=== PATIENT | female | born 1945 | race Caucasian/White ===

== ENCOUNTER 2025-08-26 10:29 | Day surgery (SDC) | payer MEDICARE, BC, SELFPAY ==
[2025-08-26] VITALS (21 sets, daily range): BP systolic 110–136; BP diastolic 64–88; PULSE 54–74; RESP 12–18; TEMP 35.6–36.7; O2SAT 60–100; BMI 24.2
[2025-08-26] MEDS: LACTATED RINGERS 1000 ML 1,000 ML 100 ML IV (10:35)
[2025-08-26] MEDS: ACETAMINOPHEN 500 MG TABLET 1000 MG PO ×3 (10:50→23:44)
[2025-08-26] MEDS: OXYCODONE (CR) 10 MG TAB.ER.12H PO (10:50)
[2025-08-26] MEDS: CELECOXIB 200 MG CAPSULE PO ×2 (10:50→21:09)
[2025-08-26] MEDS: SODIUM CHLORIDE 0.9 % (FLUSH) 10 ML SYRINGE IVF (11:17)
[2025-08-26] MEDS: MIDAZOLAM HCL 1 MG/ML inj IVP (12:15)
--- NOTE | 2025-08-26 12:28 | SUR.PREOP ---
TIME?OUT:?1215 PT/moises banks RN/santana rosen CRNA/katalina lopez MDA?VERIFICATION?OF?SURGICAL?SITE,?PROCEDURE,?AND?CONSENT OBTAINED?PRIOR?TO?INVASIVE?PROCEDURE.
--- NOTE | 2025-08-26 12:43 | P.NB_ITS ---
Nerve Block Nerve Block Time Seen by Provider: 12:15 Date Seen: 08/26/25 Type of block requested by surgeon for post-operative analgesia: geniculars Side: left Time out performed: Yes Verification of patient name: Yes Verification of date of : Yes Site marking: site marked Name of person performing procedure: Luiz Continuous monitoring Was continuous monitoring of O2 sat, B/P, radiation monitor, recorded every 15 minutes?: Yes Procedure Checklist: sterile prep, needles and gloves Ultrasound guided. Images saved: Yes Medications given in 5ml increments after negative aspiration: Marcaine %: 0.25 mL: 9 Needle gauge: 25 Patient tolerated procedure well: Yes Block Charges Block Charge (with Pro Fee): Genicular Nerve Block
--- NOTE | 2025-08-26 12:43 | P.NB_ITS ---
Nerve Block Nerve Block Time Seen by Provider: 12:15 Date Seen: 08/26/25 Type of block requested by surgeon for post-operative analgesia: adductor canal Side: left Time out performed: Yes Verification of patient name: Yes Verification of date of : Yes Site marking: site marked Name of person performing procedure: Luiz Continuous monitoring Was continuous monitoring of O2 sat, B/P, cardiac cath lab radiology technologist, recorded every 15 minutes?: Yes Procedure Checklist: sterile prep, needles and gloves Ultrasound guided. Images saved: Yes Medications given in 5ml increments after negative aspiration: Marcaine %: 0.25 mL: 15 Needle gauge: 20 Precedex (mcg): 25 Patient tolerated procedure well: Yes Block Charges Block Charge (with Pro Fee): Femoral Nerve Use of Ultrasound Machine for Block: Yes- US Guidance/pain block
[2025-08-26] MEDS: TRANEXAMIC ACID 100 MG/ML INJ 1000 MG IV (13:00)
--- NOTE | 2025-08-26 14:15 | CRLHL7_ITS ---
For Patients: As a result of the Cures Act, medical imaging exams and procedure reports are released immediately into your electronic medical record. You may view this report before your referring provider. If you have questions, please contact your health care provider. Indication: Postop TKA Technique: Two views left knee Findings/Impression: Hardware from a left total knee arthroplasty is in satisfactory position. Bone alignment is normal. No sign of acute fracture. Postop changes are within normal limits. Dictated by Isidro Cutler MD @ 08/27/2025 12:07:16 PM (Electronically Signed)
--- NOTE | 2025-08-26 14:18 | P.ORPRC_ITS ---
Procedure Note Date of procedure: 08/26/25 Procedure: PREOPERATIVE DIAGNOSIS: Left knee osteoarthritis POSTOPERATIVE DIAGNOSIS: Left knee osteoarthritis NAME OF OPERATION: Left total knee arthroplasty SURGEON: Ramón Stearns MD FURNA[employer] PLANT OPERATOR: Anny Colindres PA-C ANESTHESIA: Spinal ESTIMATED BLOOD LOSS: 0 mL COMPLICATIONS: None SPECIMENS: None DRAINS: None PREOPERATIVE ANTIBIOTICS: Ancef 1 g, antibiotic impregnated cement IMPLANTS: 1. J&J Attune #6 posterior stabilized femur 2. # 5 fixed-bearing tibia 3. #6 posterior stabilized, 8 mm fixed-bearing polyethylene 4. 38 patella INDICATIONS: The patient is a 79-year-old with a longstanding history of severe, unrelenting left knee pain secondary to end-stage (grade IV) left knee osteoarthritis. Despite appropriate nonoperative management, including activity modification, anti-inflammatories, [id number]-[id number] pain medication, bracing, physical therapy, and injections they continue to have pain and disability. Operative intervention was offered. The risks, benefits and expected outcomes were discussed in detail. These included but were not limited to: Infection, bleeding, injury to blood vessel or nerve, venous thromboembolism. All questions were answered to their satisfaction. Use of an registered sales assistant was necessary throughout the case for patient positioning and safety, soft tissue retraction, and closure. PROCEDURE: Spinal anesthesia was administered. The patient was placed supine on the operating table. The registered sales assistant made sure the patient was positioned appropriately. The lower extremity was prepped and draped in the usual sterile fashion. The limb was exsanguinated with the Kelvin bandage. The pneumatic tourniquet was inflated to 225mmHg. A standard anterior incision was made with the knee in flexion. Subcutaneous dissection was sharply taken through fascial layer #1. Full-thickness medial and lateral flaps were elevated. The registered sales assistant retracted the soft tissues and protected them throughout the case. A standard subvastus approach was made. The patella was subluxed. The infrapatellar fat pad was preserved. The menisci and cruciate ligaments were sharply d?brided. Marginal osteophytes were d?brided with the rongeur. The drill was used to penetrate the femoral canal. The intramedullary femoral guide was placed for a 5-degree valgus cut, removing 10 mm off the distal femur. The saw was used to make the cut. Whitesides line and the trans epicondylar axis were marked. The femoral sizing guide was pinned onto the distal femur. Three degrees of external rotation nicely parallels the transepicondylar axis. Pins were placed for posterior referencing. The four-in-one cutting guide was pinned onto the distal femur. The anterior, posterior, and chamfer cuts were made. The registered sales assistant protected the collateral ligaments. The box cutting guide was pinned. The box cuts were made. The boxed trial was placed and was an excellent fit. Drill holes for the lugs were made. Attention was then turned to the proximal tibia. The extramedullary Tibial guide was placed for a neutral varus/valgus cut with 5 Degrees of posterior slope, removing 2 mm based off the medial tibial surface. The registered sales assistant protected the collateral ligaments and the neurovascular bundle. The saw was used to make the cut. Trial components were placed. The knee was nicely balanced in both flexion and extension. The trial components were removed. The tray was placed in appropriate rotation, parallel to our tibial cutting pins. It was pinned by the registered sales assistant and the drill and the punch were used. The tray was removed. The punch was used again. We placed a bone plug in the femoral canal. Attention was then turned to the patella. Sioux patellar thickness was 23.5 mm. The lobster claw resection guide was used with the 9.5 mm arash. The saw was used to make the cut. Drill holes were made by the registered sales assistant. The trial was placed and was an excellent fit. Cancellous surfaces were irrigated with pulse lavage and thoroughly dried by the registered sales assistant. We cemented the tibial component, then the femoral component. We impacted the 5 mm polyethylene onto the tibial tray. The knee was brought into full extension. We then cemented the patellar component. Excessive cement was removed. The cement was allowed to harden. The knee was taken through a range of motion and was found to be nicely balanced in both flexion and extension. The patella tracks centrally. The registered sales assistant did a three minute dilute Betadine solution soak. The registered sales assistant irrigated the wound with 3 liters of normal saline via pulse lavage. The registered sales assistant reapproximated the extensor mechanism with #1 Vicryl in an interrupted [id number] fashion. The registered sales assistant then ran the extensor mechanism with a #1 PDO Stratafix. The registered sales assistant closed the subcutaneous tissues with a 3-0 Stratafix and the skin with a running 3-0 Stratafix in a subcuticular fashion. The registered sales assistant placed a dry dressing. Sponge and needle counts were correct x2. The patient tolerated the procedure well. There were no apparent complications. They were carefully transferred to the hospital bed and taken to the postanesthesia care unit in satisfactory condition. PLAN: The patient will be mobilized with physical therapy. Aspirin will be used for DVT prophylaxis. They will be discharged to home once medically appropriate.
--- NOTE | 2025-08-26 15:13 | P.ANES_ITS ---
Anesthesia Charges Start Date/Time Anesthesia Start Date: 08/26/25 Anesthesia Start Time: 12:44 Stop Date/Time Anesthesia Stop Date: 08/26/25 Anesthesia Stop Time: 15:10 Summary Extremes of Age - Over 70 or under 1: QUALITY ASSURANCE SUPERVISOR FINAL Coding CPT Codes CPT Codes: ANESTH KNEE ARTHROPLASTY - 19548 ([id number]) P2 - PATIENT W/MILD SYST DISEASE, QZ - QUALITY ASSURANCE SUPERVISOR FINAL SVC W/O HUMAN RESOURCES DESIGNATE BY Additional Codes: Summary - Extremes of Age - Over 70 or under 1: QUALITY ASSURANCE SUPERVISOR FINAL ([id number])
--- NOTE | 2025-08-26 15:13 | W.ANESCHARGE ---
Anesthesia Charges Start Date/Time Anesthesia Start Date: 08/26/25 Anesthesia Start Time: 12:44 Stop Date/Time Anesthesia Stop Date: 08/26/25 Anesthesia Stop Time: 15:10 Summary Extremes of Age - Over 70 or under 1: COOK MAYONNAISE Coding CPT Codes CPT Codes: ANESTH KNEE ARTHROPLASTY - 30625 ([id number]) P2 - PATIENT W/MILD SYST DISEASE, QZ - COOK MAYONNAISE SVC W/O PIPE INSULATOR HELPER BY Additional Codes: Summary - Extremes of Age - Over 70 or under 1: COOK MAYONNAISE ([id number])
--- NOTE | 2025-08-26 16:41 | PM.IMCN1 ---
Date of Consult Patient: Maria Patient Consult date: 08/26/25 Requesting Physician: Orthopedics Primary Care Provider: Sarah Jose Consult Narrative Reason for consult: Postop cares including diabetes mellitus, hypothyroidism Narrative: Delmy Aly is a 79 year old woman undergoes an elective left total knee arthroplasty today with Dr. Stearns, orthopedic surgeon, [facility]. Estimated blood loss 0 mL. Underlying osteoarthritis. Generally healthy. No recent travel, trauma, infection, blood loss of any sort. Lives independently, alone. Cares for her home and outside yard alone , limited only by the discomfort in her left knee, no cardiopulmonary limitations. Review of Systems Status of ROS: Reports: 10 or more systems reviewed and unremarkable except as noted in History and below Narrative: takes her prescribed medications as directed. Hemoglobin A1c on 08/05/2025 was 6.3. Does not take medications for blood sugar control. Does not have micro albuminuria. [facility] Medical History (Updated 08/26/25 @ 16:48 by Gorge Blas MD) Type 2 diabetes mellitus ?E11.9 - Type 2 diabetes mellitus without complications (ICD-10) Hyperlipidemia ?E78.5 - Hyperlipidemia, unspecified (ICD-10) Hyperglycemia ?R73.9 - Hyperglycemia, unspecified (ICD-10) Hypothyroidism ?E03.9 - Hypothyroidism, unspecified (ICD-10) Diverticulosis ?K57.90 - Diverticulosis of intestine, part unspecified, without perforation or abscess without bleeding (ICD-10) Allergic rhinitis ?J30.9 - Allergic rhinitis, unspecified (ICD-10) IBS (irritable bowel syndrome) ?K58.9 - Irritable bowel syndrome, unspecified (ICD-10) GERD (gastroesophageal reflux disease) ?K21.9 - Gastro-esophageal reflux disease without esophagitis (ICD-10) Osteopenia ?M85.80 - Other specified disorders of bone density and structure, unspecified site (ICD-10) Anxiety ?F41.9 - Anxiety disorder, unspecified (ICD-10) Insomnia ?G47.00 - Insomnia, unspecified (ICD-10) Surgical History (Updated 08/26/25 @ 16:48 by Gorge Blas MD) History of arthroscopy of right knee (09/2006) ?Z98.890 - Other specified postprocedural states (ICD-10) History of bunionectomy ?Z98.890 - Other specified postprocedural states (ICD-10) History of hysterectomy (1988) ?Z90.710 - Acquired absence of both cervix and uterus (ICD-10) History of cholecystectomy (1977) ?Z90.49 - Acquired absence of other specified parts of digestive tract (ICD-10) History of tonsillectomy ?Z90.89 - Acquired absence of other organs (ICD-10) History of arthroscopy of left knee ?Z98.890 - Other specified postprocedural states (ICD-10) Social History Smoking Status: Never smoker Do you use any of these nicotine containing products: None Second hand tobacco smoke exposure: No How often do you have a drink containing alcohol: never AUDIT-C Alcohol total score: 0 Non-prescribed substance use: denies use Caffeine: Yes Meds Home Medications and Allergies Home Medications ?Medication ?Instructions ?Recorded ?Confirmed ?Type azelastine 137 mcg (0.1 %) nasal 2 spray intranasal BID 09/28/24 08/26/25 History spray levothyroxine 88 mcg tablet 88 mcg PO QAM 09/28/24 08/26/25 History sodium chloride 0.9 % irrigation 1 irrig irrigation QID PRN 09/28/24 08/24/25 History solution albuterol sulfate 90 mcg/actuation 2 puff inhalation Q4H PRN wheezing 08/24/25 08/26/25 History aerosol inhaler (Ventolin HFA) cyanocobalamin (vitamin B-12) 500 500 mcg PO DAILY 08/24/25 08/26/25 History mcg tablet magnesium 250 mg tablet 250 mg PO DAILY 08/24/25 08/26/25 History acetaminophen 500 mg capsule 500 - 1,000 mg (1 - 2 x 500 mg) PO 08/26/25 Rx Q6H PRN pain #100 caps aspirin 81 mg chewable tablet 81 mg PO BID for DVT prophylaxis 08/26/25 Rx (Aspirin Childrens) 30 days #60 tabs oxycodone 5 mg tablet 2.5 - 5 mg (0.5 - 1 x 5 mg) PO 08/26/25 Rx Q4-6H PRN Pain #42 tabs sennosides 8.6 mg tablet (Senna 17.2 mg (2 x 8.6 mg) PO BID PRN 08/26/25 Rx Lax) constipation #100 tabs Allergies Allergy/AdvReac Type Severity Reaction Status Date / Time doxycycline Allergy Verified 08/26/25 11:00 meperidine (From Demerol) Allergy hallucinati Verified 08/26/25 11:00 ons nickel Allergy Hives Verified 08/26/25 11:00 prochlorperazine (From Allergy Anxiety Verified 08/26/25 11:00 Compazine) Sulfa (Sulfonamide Allergy Hives Verified 08/26/25 11:00 Antibiotics) fluticasone (From Flonase) AdvReac Headache Verified 08/26/25 11:00 Exam Narrative: Exam Narrative: I examined the patient in her hospital room when her daughter and son are present. She is awake, alert and oriented x4. Friendly, articulate, cooperative. Dentition in good repair. Moist buccal mucosa. Conjugate gaze. No icterus. Cranial nerves 3-12 grossly normal. Lungs are clear to auscultation. Heart tones with regular rhythm. Abdomen benign. I ready starting to move her toes and feet. Const: Vital Signs, click to edit/add: Vital Signs - 24 hr 08/26/25 11:04 08/26/25 12:15 08/26/25 12:20 Temperature 97.8 F Pulse Rate 65 58 L 62 Pulse Rate [Pulse Oximeter] Respiratory Rate 16 16 16 Blood Pressure 130/88 132/82 110/77 Blood Pressure [Le ft Arm] Pulse Oximetry 98 100 95 Oxygen Delivery Me thod Room Air Nasal Cannula Nasal Cannula Oxygen Flow Rate 3 3 08/26/25 15:07 08/26/25 15:10 08/26/25 15:15 Temperature 98.1 F Pulse Rate 56 L 57 L 55 L Pulse Rate [Pulse Oximeter] Respiratory Rate 14 15 16 Blood Pressure 118/64 116/66 117/64 Blood Pressure [Le ft Arm] Pulse Oximetry 94 94 94 Oxygen Delivery Me thod Room Air Oxygen Flow Rate 08/26/25 15:20 08/26/25 15:25 08/26/25 15:30 Temperature Pulse Rate 57 L 57 L 56 L Pulse Rate [Pulse Oximeter] Respiratory Rate 16 16 16 Blood Pressure 117/66 120/66 116/66 Blood Pressure [Le ft Arm] Pulse Oximetry 96 94 94 Oxygen Delivery Me thod Room Air Oxygen Flow Rate 08/26/25 15:35 08/26/25 15:44 08/26/25 16:01 Temperature 97.1 F L 96.5 F L 96.3 F L Pulse Rate 63 Pulse Rate [Pulse Oximeter] 59 L Respiratory Rate 15 14 12 Blood Pressure 112/65 123/69 Blood Pressure [Le ft Arm] 120/73 Pulse Oximetry 96 60 L 97 Oxygen Delivery Me thod Room Air Room Air Oxygen Flow Rate 08/26/25 16:01 08/26/25 16:16 Temperature 96.3 F L 96.0 F L Pulse Rate Pulse Rate [Pulse Oximeter] 61 59 L Respiratory Rate 14 12 Blood Pressure Blood Pressure [Le ft Arm] 120/73 129/82 Pulse Oximetry 97 97 Oxygen Delivery Me thod Room Air Room Air Oxygen Flow Rate Assessment and Plan Assessment and plan (1) Osteoarthritis of left knee: Status: Acute (2) Status post total left knee replacement: Status: Acute (3) Type 2 diabetes mellitus: Problem comment: - hemoglobin A1c 6.3 on 08/05/2025. Does not take any anti-hyperglycemic agents or hypoglycemic agents. Manage through nonpharmacologic interventions. Status: Acute (4) Hypothyroidism: Problem comment: - Continue with usual dose of levothyroxine while in hospital. Status: Acute Plan 1. Reviewed impression with patient, son, daughter. 2. Answered their questions to their satisfaction 3. Hospital service will be available to support while patient is in the hospital 4. Completed hospitalist portion of discharge orders Total Time Spent Total Time Spent: 40 minutes
[2025-08-26] MEDS: LACTATED RINGERS 1000 ML 1,000 ML 75 ML IV (16:50)
[2025-08-26] MEDS: CEFAZOLIN 1 GM in 0.9 % SODIUM CHLORIDE Mini-bag 100 ML IVPB (18:40)
--- NOTE | 2025-08-26 19:00 | PC.NURSE ---
pt a/o x4, cooperative with cares. Pt came to floor from PACU 15:44, VSS no complaints of pain throughout shift. Dressing on L knee clean dry and intact. pt did not get up during shift. Pt advanced to regular diet, pt tolerated meal. Family at bedside
[2025-08-26] MEDS: ASPIRIN 81 MG TABLET EC PO (21:09)
[2025-08-26] MEDS: SENNOSIDES 1 TAB TABLET 2 TAB PO (21:09)
[2025-08-27 03:47] VITALS: BP 128/81; PULSE 68; RESP 17; TEMP 36.7; O2SAT 97
[2025-08-27] MEDS: CEFAZOLIN 1 GM in 0.9 % SODIUM CHLORIDE Mini-bag 100 ML IVPB (03:50)
--- NOTE | 2025-08-27 05:05 | PC.NURSE ---
Shift note ([id number]): Patient pleasant, alert and oriented.?Ambulated well with walker and assist of one. Dressing to left knee clean, dry and intact. Given PRN Oxycodone and scheduled Tylenol for left knee pain rated 8/10. CMS intact. ?
[2025-08-27] MEDS: ACETAMINOPHEN 500 MG TABLET 1000 MG PO (06:59)
[2025-08-27] MEDS: LEVOTHYROXINE 88 MCG TABLET PO (06:59)
[2025-08-27 07:00] VITALS: BP 135/74; PULSE 63; RESP 12; TEMP 36.1; O2SAT 97
--- NOTE | 2025-08-27 08:43 | PM.ORPN ---
Subjective Subjective Time Seen by Provider: 07:50 Date Seen: 08/27/25 Principal diagnosis: Status post left total knee arthroplasty Interval history: Kim is discomfort in the left knee. She is tolerating it. She will discharge to home today. Ortho Exam Narrative Exam Narrative: Alert and oriented x3. Patient is in no acute distress. Converses without labored breathing. Hearing is grossly intact. Ambulates with a walker. Examination of the left knee shows very minimal edema. Dressing is intact. No ecchymosis. Calves are soft and nontender. CMS intact left lower extremity. She is easily able to straight leg raise. Const Vital Signs, click to edit/add: Vital Signs - 24 hr 08/26/25 11:04 08/26/25 12:15 08/26/25 12:20 Temperature 97.8 F Pulse Rate 65 58 L 62 Pulse Rate [Pulse Oximeter] Respiratory Rate 16 16 16 Blood Pressure 130/88 132/82 110/77 Blood Pressure [Left Arm] Pulse Oximetry 98 100 95 Oxygen Delivery Method Room Air Nasal Cannula Nasal Cannula Oxygen Flow Rate 3 3 08/26/25 15:07 08/26/25 15:10 08/26/25 15:15 Temperature 98.1 F Pulse Rate 56 L 57 L 55 L Pulse Rate [Pulse Oximeter] Respiratory Rate 14 15 16 Blood Pressure 118/64 116/66 117/64 Blood Pressure [Left Arm] Pulse Oximetry 94 94 94 Oxygen Delivery Method Room Air Oxygen Flow Rate 08/26/25 15:20 08/26/25 15:25 08/26/25 15:30 Temperature Pulse Rate 57 L 57 L 56 L Pulse Rate [Pulse Oximeter] Respiratory Rate 16 16 16 Blood Pressure 117/66 120/66 116/66 Blood Pressure [Left Arm] Pulse Oximetry 96 94 94 Oxygen Delivery Method Room Air Oxygen Flow Rate 08/26/25 15:35 08/26/25 15:44 08/26/25 16:01 Temperature 97.1 F L 96.5 F L 96.3 F L Pulse Rate 63 Pulse Rate [Pulse Oximeter] 59 L Respiratory Rate 15 14 12 Blood Pressure 112/65 123/69 Blood Pressure [Left Arm] 120/73 Pulse Oximetry 96 60 L 97 Oxygen Delivery Method Room Air Room Air Oxygen Flow Rate 08/26/25 16:01 08/26/25 16:16 08/26/25 16:31 Temperature 96.3 F L 96.0 F L 96.0 F L Pulse Rate Pulse Rate [Pulse Oximeter] 61 59 L 54 L Respiratory Rate 14 12 14 Blood Pressure Blood Pressure [Left Arm] 120/73 129/82 129/76 Pulse Oximetry 97 97 98 Oxygen Delivery Method Room Air Room Air Room Air Oxygen Flow Rate 08/26/25 16:46 08/26/25 17:16 08/26/25 17:46 Temperature 96.0 F L 96.0 F L 96.0 F L Pulse Rate Pulse Rate [Pulse Oximeter] 54 L 60 74 Respiratory Rate 14 16 14 Blood Pressure Blood Pressure [Left Arm] 131/76 136/71 129/74 Pulse Oximetry 98 96 95 Oxygen Delivery Method Room Air Room Air Room Air Oxygen Flow Rate 08/26/25 18:46 08/26/25 19:50 08/26/25 21:13 Temperature 96.3 F L 97.6 F 97.7 F Pulse Rate Pulse Rate [Pulse Oximeter] 69 67 63 Respiratory Rate 16 17 18 Blood Pressure Blood Pressure [Left Arm] 116/70 118/71 124/74 Pulse Oximetry 97 96 95 Oxygen Delivery Method Room Air Room Air Room Air Oxygen Flow Rate 08/26/25 22:50 08/26/25 22:50 08/27/25 03:47 Temperature 97.9 F 98.0 F Pulse Rate Pulse Rate [Pulse Oximeter] 69 68 Respiratory Rate 18 18 17 Blood Pressure Blood Pressure [Left Arm] 116/73 128/81 Pulse Oximetry 95 95 97 Oxygen Delivery Method Room Air Room Air Room Air Oxygen Flow Rate 08/27/25 07:00 Temperature 97.0 F L Pulse Rate Pulse Rate [Pulse Oximeter] 63 Respiratory Rate 12 Blood Pressure Blood Pressure [Left Arm] 135/74 Pulse Oximetry 97 Oxygen Delivery Method Room Air Oxygen Flow Rate Assessment and Plan Assessment and plan (1) Status post total left knee replacement: Problem details: 08/26/2025, Dr. Stearns Status: Acute Assessment and Plan: Plan for discharge is today to home if they meet discharge criteria. DVT prophylaxis includes aspirin 81 mg twice daily x1 month, Compression stockings as needed for swelling. Frequent ambulation, every hour throughout the day. Remove dressing in 1 week. Observe wound and phone Orthopedics with any questions or concerns Return to clinic in 1-2 weeks for a wound check as scheduled Return to clinic in 6 weeks with surgeon Minimize narcotic use. Wean off and discontinue soon as possible. Activities as tolerated. No strenuous activity. Outpatient physical therapy as scheduled. Ice and elevate the operative extremity. No restriction on ice.
[2025-08-27] MEDS: SENNOSIDES 1 TAB TABLET 2 TAB PO (08:46)
[2025-08-27] MEDS: ASPIRIN 81 MG TABLET EC PO (08:47)
[2025-08-27] MEDS: CELECOXIB 200 MG CAPSULE PO (08:47)
[2025-08-27 11:32] VITALS: BP 114/80; PULSE 67; RESP 16; O2SAT 95
--- NOTE | 2025-08-27 13:15 | PC.NURSE ---
Pt a/o x4, cooperative with cares. Assist of 1 w/walker. Pt on Reg diet, diet tolerated. Discharge education given both written and verbally to patient and daughter in law Pt left facility via wheelchair accompanied by daughter in law
== END 2025-08-27 11:32 | disposition home or self-care (01) ==
LOC: OR 10:30 → MEDSURG 10:31
PROVIDERS: PCP Internal Medicine; Visit Provider Orthopaedic Surgery
PROC: (CPT 27447; principal; 2025-08-26 12:15)
DX: M17.12 Unilateral primary osteoarthritis, left knee (principal); G89.18 Other acute postprocedural pain; E11.9 Type 2 diabetes mellitus without complications; K21.9 Gastro-esophageal reflux disease without esophagitis; E03.9 Hypothyroidism, unspecified; M85.80 Other specified disorders of bone density and structure, unspecified site; F41.9 Anxiety disorder, unspecified; Z79.82 Long term (current) use of aspirin
CPT/HCPCS: 27447; 01402; 64447; 64454; 73560; 76942; 82962; 97110; 97116; 97161; 97165; 97530; 97535; 99100; A9270; C1776; J0665; J0690; J1100; J2250; J2405; J2704; J3010; J7120